=== PATIENT | female | born 1930 | race Caucasian/White ===

== ENCOUNTER 2016-07-29 09:03 | Outpatient (CLI) | payer MEDICARE, OTHER | END 2016-07-29 09:04 | disposition home or self-care (01) | DX: I48.91 Unspecified atrial fibrillation (principal); D51.9 Vitamin B12 deficiency anemia, unspecified; E55.9 Vitamin D deficiency, unspecified; I25.10 Atherosclerotic heart disease of native coronary artery without angina pectoris; G43.909 Migraine, unspecified, not intractable, without status migrainosus; E78.5 Hyperlipidemia, unspecified; I10 Essential (primary) hypertension ==

== ENCOUNTER 2016-08-12 15:20 | Outpatient (CLI) | payer MEDICARE, OTHER | END 2016-08-12 15:21 | disposition home or self-care (01) | DX: J01.90 Acute sinusitis, unspecified (principal) ==

== ENCOUNTER 2016-09-14 11:39 | Outpatient (CLI) | payer MEDICARE, OTHER | END 2016-09-14 11:40 | disposition home or self-care (01) | DX: Z12.31 Encounter for screening mammogram for malignant neoplasm of breast (principal); Z80.3 Family history of malignant neoplasm of breast ==

== ENCOUNTER 2016-09-29 12:01 | Outpatient (CLI) | payer MEDICARE, OTHER | END 2016-09-29 12:02 | disposition home or self-care (01) | DX: Z12.31 Encounter for screening mammogram for malignant neoplasm of breast (principal); Z80.3 Family history of malignant neoplasm of breast ==

== ENCOUNTER 2016-10-15 16:18 | Outpatient (CLI) | payer MEDICARE, OTHER | END 2016-10-15 23:59 | disposition critical access hospital (66) | DX: R55 Syncope and collapse (principal); R42 Dizziness and giddiness; R51 Headache; R53.1 Weakness | CPT/HCPCS: A0425; A0429 ==

== ENCOUNTER 2016-10-15 16:52 | Observation (INO) | payer MEDICARE, OTHER ==
[2016-10-15] MEDS ORDERED: ONDANSETRON 4 MG/2 ML VIAL IVP PRN (20:08)
[2016-10-15] MEDS ORDERED: SODIUM CHLORIDE FLUSH 0.9% 10 ML SYRINGE IVP PRN (20:08)
[2016-10-15] MEDS: SODIUM CHLORIDE FLUSH 0.9% 10 ML SYRINGE IVP SCH (21:39)
[2016-10-15] MEDS: SODIUM CHLORIDE 0.9% 1,000 ML IV SCH (21:39)
[2016-10-15] MEDS ORDERED: traMADol 50 MG TABLET PO PRN (21:54)
[2016-10-15] MEDS: hydrALAZINE INJ 20 MG/ML VIAL IVP PRN (22:15)
[2016-10-16] MEDS ORDERED: oxyCOD/ACETAMIN 5 MG/325 MG TABLET PO PRN (00:40)
[2016-10-16] MEDS ORDERED: SUMAtriptan 25 MG TABLET PO PRN (00:41)
[2016-10-16] MEDS: hydrALAZINE INJ 20 MG/ML VIAL IVP PRN (05:55)
[2016-10-16] MEDS: SODIUM CHLORIDE FLUSH 0.9% 10 ML SYRINGE IVP SCH (06:09)
[2016-10-16] MEDS: SODIUM CHLORIDE 0.9% 1,000 ML IV SCH (08:02)
[2016-10-16] MEDS ORDERED: POLYETHYLENE GLYCOL 3350 17 GM PACKET PO SCH (09:00)
[2016-10-16] MEDS ORDERED: METOPROLOL SUCCINATE 50 MG TABLET PO SCH (09:00)
[2016-10-16] MEDS ORDERED: amLODIPine 5 MG TABLET PO SCH (09:00)
[2016-10-16] MEDS ORDERED: ENOXAPARIN 40 MG/0.4 ML SYRINGE SUBQ SCH (09:00)
[2016-10-16] MEDS ORDERED: POTASSIUM CHLORIDE 20 MEQ TABLET PO SCH (10:00)
[2016-10-16] MEDS ORDERED: CARBOXYMETHYLCELLULOSE OPHTH DROPS ONE ×2 (10:22→12:27)
== END 2016-10-16 14:32 | disposition home or self-care (01) ==
DX: R55 Syncope and collapse (principal); E87.1 Hypo-osmolality and hyponatremia; E86.0 Dehydration; I10 Essential (primary) hypertension; J32.9 Chronic sinusitis, unspecified; I25.10 Atherosclerotic heart disease of native coronary artery without angina pectoris; Z95.1 Presence of aortocoronary bypass graft; E78.5 Hyperlipidemia, unspecified; Z79.82 Long term (current) use of aspirin
CPT/HCPCS: 36415; 70450; 71010; 80053; 81001; 83690; 84484; 85025; 85651; 93005; 93010; 93306; 93880; 96361; 96372; 96374; 96376; 99284; 99285; A9270; G0378; J1650

== ENCOUNTER 2017-01-26 10:13 | Outpatient (CLI) | payer MEDICARE, OTHER | END 2017-01-26 10:14 | LOC: LAB.N 10:13 | PROVIDERS: ATTEND Physician Assistant | DX: M70.62 Trochanteric bursitis, left hip (principal) | CPT/HCPCS: 36415; 85651 ==

== ENCOUNTER 2017-01-26 11:43 | Outpatient (CLI) | payer MEDICARE, OTHER ==
--- NOTE | 2017-01-26 14:18 | XRAY Report ---
BILATERAL HIPS AND PELVIS: 01/26/2017 CLINICAL INDICATION: Bursitis. FINDINGS: Frontal view of the hips and pelvis and bilateral frogleg lateral views of the hips are co mpared to previous films of 05/03/2013. There is mild bilateral hip osteoarthritis. There is no evidence of acute fracture or dislocation. Va scular calcifications are noted. IMPRESSION: MILD BILATERAL HIP OSTEOARTHRITIS. JOB #: [id number] EXT JOB #:[id number]
== END 2017-01-26 11:44 | disposition home or self-care (01) ==
LOC: DI.N 11:43
PROVIDERS: ATTEND Physician Assistant
DX: M16.0 Bilateral primary osteoarthritis of hip (principal)
CPT/HCPCS: 36415; 73521; 85651

== ENCOUNTER 2017-03-09 09:29 | Outpatient (CLI) | payer MEDICARE, OTHER ==
[2017-03-09 14:12] LABS: CHOL/HDL RATIO 2.6 (<4.4); CHOLESTEROL 149 mg/dL; HDL CHOLESTEROL 57 mg/dL; LDL/HDL RATIO 1.4 (<4.4); TRIGLYCERIDES 58 mg/dL; VLDL CHOLESTEROL 12 mg/dL
== END 2017-03-09 09:30 ==
LOC: LAB.N 09:29
PROVIDERS: ATTEND Internal Medicine Cardiovascular Disease
DX: Z95.1 Presence of aortocoronary bypass graft (principal); I10 Essential (primary) hypertension; I73.9 Peripheral vascular disease, unspecified; I48.0 Paroxysmal atrial fibrillation; E78.00 Pure hypercholesterolemia, unspecified; Z79.890 Hormone replacement therapy
CPT/HCPCS: 36415; 80061

== ENCOUNTER 2017-09-24 09:00 | Outpatient (CLI) | payer MEDICARE, OTHER ==
--- NOTE | 2017-09-24 14:17 | Ultrasound Report ---
EXAM: THYROID ULTRASOUND EXAM DATE: 09/24/2017 09:57 AM. CLINICAL HISTORY: LYMPHADENOPATHY. COMPARISON: None. TECHNIQUE: Real time sonographic imaging of the thyroid was performed by the hris manager. Multiple re presentative static images were saved for review. FINDINGS: THYROID GLAND: Right Lobe: 5.2 x 2.2 x 2.0 cm, volume 12 cc. Right Lobe Nodules: Too many to count subcentimeter cysts and nodules. Dominant cyst measures 1.3 cm and has slight mural nodularity. Left Lobe: 4.7 x 1.6 x 1.5 cm, volume 6 cc. Left Lobe Nodules: Too many to count subcentimeter cysts and nodules. Dominant mixed solid and cystic nodule measures 1.4 cm. Isthmus: 0.2 cm AP. Isthmic Nodules: None. LYMPH NODES: No adenopathy demonstrated in the central or lateral compartment. The right submandibular gland measures 3.1 x 2.5 x 1.0 cm and is palpable. The left submandibular gland measures 3.3 x 2.5 x 0.8 cm and is not palpable. IMPRESSION: Dominant left thyroid nodule as detailed above. Management recommendations are based on 2015 [place] [employer] Management Guidelines for A dult Patients with Thyroid Nodules and Differentiated Thyroid Cancer. [facility] Referring Provider Line: [phone] SITE ID: [id number]
== END 2017-09-24 09:01 | disposition home or self-care (01) ==
LOC: DI 09:00
PROVIDERS: ATTEND Nurse Practitioner Gerontology
DX: E04.2 Nontoxic multinodular goiter (principal)
CPT/HCPCS: 76536

== ENCOUNTER 2017-10-10 09:56 | Outpatient (CLI) | payer MEDICARE, OTHER | END 2017-10-10 09:57 | disposition home or self-care (01) | LOC: LAB.N 09:56 | PROVIDERS: ATTEND Nurse Practitioner Gerontology | DX: E04.2 Nontoxic multinodular goiter (principal) | CPT/HCPCS: 36415; 84443 ==

== ENCOUNTER 2017-12-19 10:30 | Outpatient (CLI) | payer MEDICARE, OTHER ==
[2017-12-19 19:26] LABS: BILIRUBIN,URINE NEGATIVE (NEGATIVE); GLUCOSE, URINE (UA) NEGATIVE (NEGATIVE); KETONES,URINE (UA) NEGATIVE (NEGATIVE); LEUKOCYTE ESTERASE, URINE LARGE (NEGATIVE); NITRITE,URINE NEGATIVE (NEGATIVE); OCCULT BLOOD,URINE SMALL (NEGATIVE); PROTEIN,URINE NEGATIVE (NEGATIVE); UROBILINOGEN,URINE 0.2 (NORMAL) E.U./dL (NORMAL)
[2017-12-19 19:29] LABS: CLARITY,URINE CLOUDY (CLEAR)
[2017-12-19 20:02] LABS: BACTERIA,URINE Many /HPF (None Seen); SQUAMOUS EPITHELIAL CELL,UR FEW Squamous (<= Few)
== END 2017-12-19 10:31 | disposition home or self-care (01) ==
LOC: LAB.R 10:30
PROVIDERS: ATTEND Physician Assistant Medical
DX: R30.0 Dysuria (principal)
CPT/HCPCS: 81001; 87086; 87181

== ENCOUNTER 2018-02-07 13:49 | Outpatient (CLI) | payer MEDICARE, OTHER | END 2018-02-07 13:50 | disposition critical access hospital (66) | LOC: EMS 13:49 | PROVIDERS: ATTEND Surgery | DX: M25.511 Pain in right shoulder (principal); W10.9XXA Fall (on) (from) unspecified stairs and steps, initial encounter; Y92.009 Unspecified place in unspecified non-institutional (private) residence as the place of occurrence of the external cause | CPT/HCPCS: A0425; A0429 ==

== ENCOUNTER 2018-02-07 14:25 | Emergency (ER) | payer MEDICARE, OTHER ==
[2018-02-07] MEDS ORDERED: ACETAMINOPHEN 325 MG TABLET PO STA (15:56)
--- NOTE | 2018-02-07 15:59 | ED Physician Documentation ---
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 denies: Neck pain, Back pain Neurologic: denies: Focal weakness, Numbness, Headache, Head injury Endocrine: denies: Easy bruising / bleeding PD PAST MEDICAL HISTORY - Past Medical History Cardiovascular: Hypertension, High cholesterol, Coronary artery disease Respiratory: None Endocrine/Autoimmune: None GI: None : None HEENT: Chronic hearing loss Psych: None Musculoskeletal: Osteoarthritis, Scoliosis Derm: None - Past Surgical History Past Surgical History: Yes Ortho: Spine surgery /VEGETABLE TESTER: Hysterectomy Cardiovascular: CABG - Present Medications Home Medications: Ambulatory Orders Medication Instructions Recorded Confirmed Aspirin [Aspir-Low] 81 mg ORAL DAILY 11/25/15 10/15/16 amLODIPine [Norvasc] 2.5 mg PO DAILY 10/15/16 10/16/16 Atenolol 25 mg PO QPM 10/16/16 10/16/16 Atenolol 50 mg PO DAILY 10/16/16 10/16/16 Atorvastatin Calcium 20 mg PO DAILY 10/16/16 10/16/16 Celecoxib [Celebrex] 200 mg PO DAILY PRN 10/16/16 10/16/16 Fluticasone [Flonase] 2 sprays KARLY DAILY PRN 10/16/16 10/16/16 Loratadine [Claritin] 10 mg PO DAILY 10/16/16 10/16/16 Tramadol HCl 50 mg PO DAILY PRN 10/16/16 10/16/16 oxyCODONE [Roxicodone] 5 mg PO Q6H PRN #10 tablet 02/07/18 - Allergies Allergies/Adverse Reactions: Allergies Allergy/AdvReac Type Severity Reaction Status Date / Time losartan Allergy Edema Verified 10/15/16 17:13 - Social History Does the pt smoke?: No Smoking Status: Never smoker Does the pt drink ETOH?: No Does the pt have substance abuse?: No - Immunizations Immunizations are current?: Yes PD ED PE NORMAL - Vitals Vital signs reviewed: Yes - HEENT HEENT: Atraumatic - Neck Neck: No bony TTP - Cardiac Cardiac: RRR - Respiratory Respiratory: No respiratory distress, Clear bilaterally - Abdomen Abdomen: Soft, Non tender - Derm Derm: Normal color - Extremities Extremities: Other (TTP distal clavicle and shoulder, limited ROM 2/2 pain, no gross deformity, MSV intact, knee mild TTP, no deofmrity, no laxity, able to range, MSV intact) - Neuro Neuro: Alert and oriented X 3, senior safety support manager 2-12 intact, No motor deficit, No sensory deficit, Normal speech Eye Opening: Spontaneous Motor: Obeys Commands Verbal: Oriented GCS Score: 15 Results - Vitals Vitals: Vital Signs - 24 hr 02/07/18 14:37 Temperature 36.7 C Heart Rate 54 L Respiratory 16 Rate Blood Pressure 178/56 H O2 Saturation 96 Oxygen O2 Source Room air - Rads (name of study) R shoulder Radiology: See rad report (comminuted minimally displaced / angulated fx distal clavicle not involving AC jt) knee Radiology: See rad report (possible patellar avilsion fx at site of quad tendon insertion) PD MEDICAL DECISION MAKING - Sepsis Event Vital Signs: Vital Signs - 24 hr 02/07/18 14:37 Temperature 36.7 C Heart Rate 54 L Respiratory 16 Rate Blood Pressure 178/56 H O2 Saturation 96 Oxygen O2 Source Room air Departure - Departure Disposition: 01 Home, Self Care Clinical Impression: Right clavicle fracture Qualifiers: Encounter type: initial encounter Clavicle location: lateral end Fracture type : closed Fracture alignment: displaced Qualified Code(s): S42.031A - Displaced fracture of lateral end of right clavicle, initial encounter for closed fracture Patella fracture Qualifiers: Encounter type: initial encounter Fracture type: closed Fracture morphology: unspecified fracture morphology Fracture alignment: nondisplaced Laterality: right Qualified Code(s): S82.001A - Unspecified fracture of right patella, initial encounter for closed fracture Condition: Good Instructions: ED Fx Clavicle, ED Fx Knee Follow-Up: [facility] [Provider Group] Prescriptions: oxyCODONE [Roxicodone] 5 mg PO Q6H PRN #10 tablet PRN Reason: Severe Pain Comments: !4 stairs was a huge tumble but thankfully you did not hurt your head or neck or break a hip You did break your clavicle and have an avulsion fracture of the kneecap. But you get to go home for today with a brace, a sling and some medication for the pain Please follow up with orthopedics call to schedule Wear the knee brace whenever ambulating - if you use your quadriceps to straighten your knee while weight bearing the injury could be worsened And even though you should wear the sling, several times a day do pendulum exercises as I showed you to keep the should joint from "freezing" Take tylenol and apply ice for mild pain. Only take the oxycodone for severe pain Return if worse
--- NOTE | 2018-02-07 16:18 | XRAY Report ---
Procedure Date: 02/07/2018 Accession Number: [id number] / [id number] Procedure: XR - Knee 4 View RT CPT Code: FULL RESULT: EXAM: RIGHT KNEE RADIOGRAPHY EXAM DATE: 02/07/2018 03:33 PM. CLINICAL HISTORY: Fell down 14 stairs. COMPARISON: None. TECHNIQUE: 4 views. FINDINGS: Bones: Possible minimally displaced fracture of a traction enthesophyte at the quadriceps insertion on the patella versus atypical appearance. No additional findings concerning for displaced fracture. No suspicious focal osseous lesion. Joints: No effusion. No subluxation/dislocation. No significant degenerative change on nonweightbearing exam. Soft Tissues: Mild vascular calcifications noted along the course of the popliteal artery. Surgical clips project along the medial lower leg within the soft tissues, possibly due to prior vein harvest. IMPRESSION: Possible minimally displaced fracture of a traction enthesophyte at the quadriceps insertion on the patella, though the absence of apparent soft tissue swelling suggests this is a chronic appearance. [facility]
--- NOTE | 2018-02-07 16:18 | XRAY Report ---
Procedure Date: 02/07/2018 Accession Number: [id number] / [id number] Procedure: XR - Shoulder 3 View RT CPT Code: FULL RESULT: EXAM: RIGHT SHOULDER RADIOGRAPHY EXAM DATE: 02/07/2018 03:33 PM. CLINICAL HISTORY: Fell down 14 stairs. COMPARISON: Chest radiograph 10/15/2016. Right shoulder radiograph 10/26/2007.. TECHNIQUE: 3 views. FINDINGS: Bones: Comminuted minimally displaced and minimally inferiorly angulated fracture of the distal third of the clavicle without definite extension to the acromioclavicular joint. Joints: The glenohumeral joint is unremarkable. Prominent inferior facing osteophyte from the acromion likely impinging upon the rotator cuff, similar to remote prior exam. Soft tissues: Soft tissue swelling/hematoma present about the fracture site. Visualized hemithorax is unremarkable with evidence of prior sternotomy. IMPRESSION: Minimally displaced and minimal apex inferior angulation of a comminuted distal clavicular fracture without extension/disruption of the acromioclavicular joint. Fracture is just beyond the site of the coracoclavicular ligament attachment. [facility]
[2018-02-07 17:53] VITALS: BP 164/74
== END 2018-02-07 17:52 | disposition home or self-care (01) ==
LOC: ED 14:25
DX: S42.031A Displaced fracture of lateral end of right clavicle, initial encounter for closed fracture (principal); S82.001A Unspecified fracture of right patella, initial encounter for closed fracture; I10 Essential (primary) hypertension; Z79.82 Long term (current) use of aspirin; W10.9XXA Fall (on) (from) unspecified stairs and steps, initial encounter
CPT/HCPCS: 73030; 73564; 99283; 99284; A9270

== ENCOUNTER 2018-08-31 08:00 | Outpatient (CLI) | payer MEDICARE, OTHER ==
[2018-08-31 19:33] LABS: THYROID STIMULATING HORMONE 3.35 uIU/mL (0.34-5.60)
== END 2018-08-31 23:59 | disposition home or self-care (01) ==
LOC: LAB.N 08:00
PROVIDERS: ATTEND Nurse Practitioner Gerontology
DX: R53.83 Other fatigue (principal); E04.2 Nontoxic multinodular goiter; E53.8 Deficiency of other specified B group vitamins
CPT/HCPCS: 36415; 82607; 84443

== ENCOUNTER 2018-09-21 12:50 | Outpatient (CLI) | payer MEDICARE, OTHER ==
--- NOTE | 2018-09-21 16:11 | Ultrasound Report ---
Reason: ABDOMINAL AORTIC ANUERYSM Procedure Date: 09/21/2018 Accession Number: [id number] / [id number] Procedure: US - Retroperitoneal Limited CPT Code: FULL RESULT: EXAM: AORTIC DOPPLER ULTRASOUND EXAM DATE: 09/21/2018 02:27 PM. CLINICAL HISTORY: Abdominal aortic aneurysm followup. COMPARISON: None. TECHNIQUE: Real-time sonographic imaging of retroperitoneal vascular structures, including color-flow, was performed by the student specialist. Multiple labor union business representative static images were saved for review. FINDINGS: Aorta: The abdominal aorta was suboptimally visualized with ultrasound due to overlying bowel gas. 3.7 cm fusiform aneurysm of the infrarenal aorta is confirmed sonographically corresponding to finding described on outside lumbar spine MRI. Normal caliber iliac arteries noted. Aorta: Proximal: Sagittal AP 2.25 cm. Mid: Transverse 1.96 x 1.70 cm. Distal: Transverse 3.67 x 3.63 cm. Iliacs: Right Iliac: Transverse 1.0 x 0.84 cm. Left Iliac: Transverse 1.1 x 0.94 cm. Iliac Vessels: The visualized proximal common iliac arteries are normal in caliber. Other: 4 cm unilocular, thin-walled, anechoic, simple appearing cyst noted in the left lower quadrant adjacent to the urinary bladder incompletely characterized on this exam. IMPRESSION: 1. 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 2. 4 cm unilocular simple appearing cyst in the left lower quadrant adjacent to urinary bladder presumably an ovarian cyst. Recommend dedicated pelvic ultrasound for further characterization. [facility]
== END 2018-09-21 12:51 | disposition home or self-care (01) ==
LOC: DI 12:50
PROVIDERS: ATTEND Nurse Practitioner Gerontology
DX: I71.4 Abdominal aortic aneurysm, without rupture (principal)
CPT/HCPCS: 76775

== ENCOUNTER 2018-10-03 10:14 | Outpatient (CLI) | payer MEDICARE, OTHER ==
--- NOTE | 2018-10-03 16:36 | Mammography Report ---
Reason: SCREENING MAMMO Procedure Date: 10/03/2018 Accession Number: [id number] / [id number] Procedure: MGN - Screening Mammo Dig Bilat CPT Code: FULL RESULT: EXAM: Screening Mammo Dig Bilat DATE: 10/03/2018 10:43 AM CLINICAL HISTORY: Routine screening. No reported personal or family history of breast cancer. History of benign excisional biopsy left breast in 1992. TECHNIQUE: (B) - Bilateral Bilateral CC and MLO views were obtained. COMPARISON: 09/14/2016 through 02/07/2014 PARENCHYMAL PATTERN: (D) - The breasts demonstrate heterogeneously dense fibroglandular parenchyma bilaterally. FINDINGS: Left breast: There are stable excisional biopsy changes in the inferior breast. Exam is mildly technically limited due to to patient mobility constraints secondary to scoliosis; the best possible images were obtained. There are no suspicious masses, calcifications or areas of nonoperative distortion. Right breast: There are no suspicious masses, calcifications, or areas of distortion. IMPRESSION: Benign findings. BI-RADS category 2 RECOMMENDATION: (ANNUAL) - Recommend routine annual screening mammography. BI-RADS CATEGORY: (2) - Benign Findings STANDARD QUALIFYING STATEMENTS: 1. This examination was reviewed with the aid of Computer-Aided Detection (CAD). 2. A negative or benign imaging report should not preclude biopsy if clinically suspicious findings are present. 3. Dense breasts may obscure an underlying neoplasm. 4. This examination was reviewed without the aid of 3D breast imaging (tomosynthesis).
== END 2018-10-03 10:15 | disposition home or self-care (01) ==
LOC: DI.N 10:14
DX: Z12.31 Encounter for screening mammogram for malignant neoplasm of breast (principal)
CPT/HCPCS: 77067

== ENCOUNTER 2018-11-15 11:04 | Outpatient (CLI) | payer MEDICARE, OTHER ==
--- NOTE | 2018-11-16 10:21 | XRAY Report ---
Reason: acute lower respiratory infection Procedure Date: 11/15/2018 Accession Number: [id number] / [id number] Procedure: XRN - Chest 2 View X-Ray CPT Code: 90919 FULL RESULT: EXAM: CHEST RADIOGRAPHY EXAM DATE: 11/15/2018 11:28 AM. CLINICAL HISTORY: Acute lower respiratory infection. COMPARISON: CHEST 1 VIEW 10/15/2016 8:53 PM. TECHNIQUE: 2 views. FINDINGS: Lungs/Pleura: Lungs are hypoinflated. No focal airspace opacities to indicate pneumonia. No significant effusion and no extraventilatory air. Mediastinum: Heart size is borderline enlarged. There is no edema. Mediastinal and hilar contours are within expected limits. Other: Posterior left hemidiaphragmatic eventration versus Bochdalek hernia containing stomach is noted behind the heart. IMPRESSION: No infiltrates or edema. [facility]
== END 2018-11-15 11:05 | disposition home or self-care (01) ==
LOC: DI.N 11:04
PROVIDERS: ATTEND Nurse Practitioner Gerontology
DX: J22 Unspecified acute lower respiratory infection (principal)
CPT/HCPCS: 71046

== ENCOUNTER 2019-07-13 11:19 | Outpatient (CLI) | payer MEDICARE, OTHER ==
[2019-07-13 19:35] LABS: ALBUMIN 4.2 g/dL (3.2-5.5); ALBUMIN/GLOBULIN RATIO 1.4 (1.0-2.2); ALKALINE PHOSPHATASE 58 IU/L (42-121); ALT ALANINE AMINOTRANSFERASE 21 IU/L (10-60); AST ASPARTATE AMINOTRANSFERASE 23 IU/L (10-42); BILIRUBIN,TOTAL 0.7 mg/dL (0.2-1.0); BUN - BLOOD UREA NITROGEN 11 mg/dL (6-20); CARBON DIOXIDE - CO2 29 mmol/L (21-32); CHLORIDE 96 mmol/L (101-111); CHOL/HDL RATIO 2.8 (<4.4); CHOLESTEROL 179 mg/dL; CREATININE 0.6 mg/dL (0.4-1.0); GFR - MDRD 95 (>89); GLUCOSE 96 mg/dL (70-100); HDL CHOLESTEROL 63 mg/dL; LDL CHOLESTEROL,CALCULATED 97 mg/dL; LDL/HDL RATIO 1.5 (<4.4); SODIUM 132 mmol/L (135-145); TOTAL PROTEIN 7.3 g/dL (6.7-8.2); VLDL CHOLESTEROL 19 mg/dL
== END 2019-07-13 23:59 | disposition home or self-care (01) ==
LOC: LAB.N 11:19
PROVIDERS: ATTEND Internal Medicine Cardiovascular Disease
DX: E78.5 Hyperlipidemia, unspecified (principal)
CPT/HCPCS: 36415; 80053; 80061; 83721

== ENCOUNTER 2019-08-18 21:22 | Outpatient (CLI) | payer MEDICARE, OTHER | END 2019-08-18 21:23 | disposition critical access hospital (66) | LOC: EMS 21:22 | PROVIDERS: ATTEND Surgery | DX: M54.9 Dorsalgia, unspecified (principal); W18.39XA Other fall on same level, initial encounter; Y92.008 Other place in unspecified non-institutional (private) residence as the place of occurrence of the external cause | CPT/HCPCS: A0425; A0429 ==

== ENCOUNTER 2019-08-18 21:49 | Emergency (ER) | payer MEDICARE, OTHER ==
--- NOTE | 2019-08-18 22:05 | ED Physician Documentation ---
History of Present Illness - Stated complaint Stated Complaint: GLF - Chief complaint Chief Complaint: Back Pain - History obtained from History obtained from: Patient (the patient is a n 88 y/o f who was brought in by EMS after she slumped to the floor while she was at her house.The patient reports that she was putting on her pajamas to go to bed and then she kind of slumped to the floor she is complaining of diffuse back pain, she is unsure if she hit her head she arrives in a c collar, she is on plavix, she is unsure if she had a loss of consciousness. She denies any bleeding. she reports severe back pain and states she cannot walk and that she has had recurrent falls over the last several weeks. she has a hx of triple bypass surgery for cad.the patient denies chest pain or shortness of breath. patient reports she cannot sit up, cannot walk with or without assistance.) Review of Systems Constitutional: reports: Reviewed and negative Eyes: reports: Reviewed and negative Ears: reports: Reviewed and negative Nose: reports: Reviewed and negative Throat: reports: Reviewed and negative Cardiac: reports: Reviewed and negative Respiratory: reports: Reviewed and negative GI: reports: Reviewed and negative : reports: Reviewed and negative Skin: reports: Reviewed and negative Musculoskeletal: reports: Back pain Neurologic: reports: Reviewed and negative Psychiatric: reports: Reviewed and negative Endocrine: reports: Reviewed and negative Immunocompromised: reports: Reviewed and negative PD PAST MEDICAL HISTORY - Past Medical History Cardiovascular: Hypertension, High cholesterol, Coronary artery disease Respiratory: None Endocrine/Autoimmune: None GI: None : None HEENT: Chronic hearing loss Psych: None Musculoskeletal: Osteoarthritis, Scoliosis Derm: None - Past Surgical History Past Surgical History: Yes Ortho: Spine surgery /TECHNICAL TRANSLATOR: Hysterectomy Cardiovascular: CABG - Present Medications Home Medications: Ambulatory Orders Medication Instructions Recorded Confirmed Aspirin [Aspir-Low] 81 mg ORAL DAILY 11/25/15 10/15/16 amLODIPine [Norvasc] 2.5 mg PO DAILY 10/15/16 10/16/16 Atenolol 50 mg PO DAILY 10/16/16 10/16/16 Atorvastatin Calcium 20 mg PO DAILY 10/16/16 10/16/16 Celecoxib [Celebrex] 200 mg PO DAILY PRN 10/16/16 10/16/16 Fluticasone [Flonase] 2 sprays KARLY DAILY PRN 10/16/16 10/16/16 Loratadine [Claritin] 10 mg PO DAILY 10/16/16 10/16/16 Tramadol HCl 50 mg PO DAILY PRN 10/16/16 10/16/16 atenoloL [Atenolol] 25 mg PO QPM 10/16/16 10/16/16 oxyCODONE [Roxicodone] 5 mg PO Q6H PRN #10 tablet 02/07/18 - Allergies Allergies/Adverse Reactions: Allergies Allergy/AdvReac Type Severity Reaction Status Date / Time losartan Allergy Edema Verified 10/15/16 17:13 - Social History Does the pt smoke?: No Smoking Status: Never smoker Does the pt drink ETOH?: No Does the pt have substance abuse?: No - Immunizations Immunizations are current?: Yes PD ED PE NORMAL - Vitals Vital signs reviewed: Yes - General General: Other (frail and weak appearing, crying in pain, no obvious signs of trauma) - HEENT HEENT: Atraumatic, PERRL, Pharynx benign, Dentition benign - Neck Neck: Supple, no meningeal sign, No bony TTP, No JVD, Other (c collar in place) - Cardiac Cardiac: RRR, No murmur, Strong equal pulses - Respiratory Respiratory: No respiratory distress, Clear bilaterally - Abdomen Abdomen: Normal bowel sounds, Soft, Non tender, Non distended, No organomegaly - Back Back: Other (The back is diffusely tender throughout the thoracic and lumbar spine to include bilateral paraspinal muscles the patient is complaining of pain when the midline is pushed however there is no step-offs or deformities of the thoracic or lumbar spine.There is no midline tenderness to palpation of the cervical spine no step-offs or deformities of the cervical spine there is a cervical collar in place.) - Derm Derm: Warm and dry - Extremities Extremities: No deformity - Neuro Neuro: burr machine operator 2-12 intact, No motor deficit, No sensory deficit, Normal speech - Psych Psych: Normal mood, Normal affect Results - Vitals Vitals: Vital Signs - 24 hr 08/18/19 08/19/19 21:57 03:49 Temperature 36.3 C L Heart Rate 72 74 Respiratory 18 14 Rate Blood Pressure 183/75 H 141/62 H O2 Saturation 95 96 Oxygen O2 Source Room air - EKG (time done) 22:46 Rhythm: NSR [place]: LAD Intervals: Normal [place] Ischemia: Non specific changes Computer interpretation: Agree with computer - Labs Labs: Laboratory Tests 08/18/19 08/18/19 08/18/19 22:09 22:09 22:09 WBC 8.0 RBC 4.67 Hgb 13.8 Hct 42.2 MCV 90.4 MCH 29.6 MCHC 32.7 RDW 12.8 Plt Count 312 MPV 9.9 Neut # (Auto) 5.2 Lymph # (Auto) 1.8 [place] # (Auto) 0.7 Eos # (Auto) 0.1 Baso # (Auto) 0.0 Absolute Nucleated RBC 0.00 Nucleated RBC % 0.0 PT 12.1 INR 1.1 APTT 31.1 Sodium 133 L Potassium 3.6 Chloride 96 L Carbon Dioxide 26 Anion Gap 11.0 BUN 12 Creatinine 0.7 Estimated GFR (MDRD) 79 L Glucose 157 H Calcium 9.1 Troponin I High Sens Ethyl Alcohol < 5.0 08/18/19 08/19/19 22:09 01:00 WBC RBC Hgb Hct MCV MCH MCHC RDW Plt Count MPV Neut # (Auto) Lymph # (Auto) [place] # (Auto) Eos # (Auto) Baso # (Auto) Absolute Nucleated RBC Nucleated RBC % PT INR APTT Sodium Potassium Chloride Carbon Dioxide Anion Gap BUN Creatinine Estimated GFR (MDRD) Glucose Calcium Troponin I High Sens 17.7 H* 21.3 H* Ethyl Alcohol PD MEDICAL DECISION MAKING - ED course Complexity details: re-evaluated patient (after imaging reviewed patient reexamined, her c collar was removed using c spine nexus criteria. patient continues to have pain, she is unable to ambulate with or without assistance, she is unable to sit up on her own, she is unble to sit up in a wheelchair.), d/w patient, d/w family (had a lengthy discussion with patient and regarding plan. the patient and ultimately decided to go home, the patient was taken home via ambulance. the patient was evaluated by the hospitalist dr. gloria tejada and he recommended the patient not be admitted to the hospital and that she be sent home.), other - Consults Consults: Consulted (name) (dr. gloria tejada. recommends dc home and follow up as outpatient.), Discussed case with (dr gloria tejada. recommends dc home and follo w up with outpatient treatment.), Request legal nurse consultant evaluate patient, Request legal nurse consultant admit patient Departure - Departure Disposition: 01 Home, Self Care Clinical Impression: Weakness, Recurrent falls, Troponin I above reference range Back pain Qualifiers: Back pain location: back pain in unspecified location Chronicity: acute Back pain laterality: unspecified Qualified Code(s): M54.9 - Dorsalgia, unspecified Condition: Fair Instructions: Troponin, ED Low Back Pain Injury Follow-Up: Nicolle Byrne ARNP [Primary Care Provider] - Tomorrow Discharge Date/Time: 08/19/19 03:50
[2019-08-18 22:37] LABS: BASOPHILS % (AUTO) 0.5 %; EOSINOPHILS # (AUTO) 0.1 10^3/uL (0.0-0.7); EOSINOPHILS % (AUTO) 1.6 %; HGB - HEMOGLOBIN 13.8 g/dL (12.0-16.0); LYMPHOCYTES # (AUTO) 1.8 10^3/uL (1.5-3.5); LYMPHOCYTES % (AUTO) 22.1 %; MEAN CORPUSCULAR HEMOGLOBIN 29.6 pg (27.0-31.0); MEAN CORPUSCULAR HGB CONC 32.7 g/dL (32.0-36.0); MEAN CORPUSCULAR VOLUME 90.4 fL (81.0-99.0); MEAN PLATELET VOLUME 9.9 fL (7.9-10.8); MONOCYTES # (AUTO) 0.7 10^3/uL (0.0-1.0); MONOCYTES % (AUTO) 8.9 %; NEUTROPHILS # (AUTO) 5.2 10^3/uL (1.5-6.6); NEUTROPHILS % (AUTO) 65.1 %; PLT - PLATELET COUNT 312 10^3/uL (130-450); RED BLOOD COUNT 4.67 10^6/uL (4.20-5.40); RED CELL DISTRIBUTION WIDTH 12.8 % (12.0-15.0)
[2019-08-18 22:39] LABS: INR 1.1 (0.8-1.2); PT - PROTHROMBIN TIME 12.1 secs (9.9-12.6)
[2019-08-18 22:46] LABS: PARTIAL THROMBOPLASTIN TIME 31.1 secs (24.9-33.3)
[2019-08-18 22:47] LABS: BUN - BLOOD UREA NITROGEN 12 mg/dL (6-20); CARBON DIOXIDE - CO2 26 mmol/L (21-32); CHLORIDE 96 mmol/L (101-111); CREATININE 0.7 mg/dL (0.4-1.0); GFR - MDRD 79 (>89); GLUCOSE 157 mg/dL (70-100); SODIUM 133 mmol/L (135-145)
[2019-08-18 23:00] LABS: CALCIUM 9.1 mg/dL (8.5-10.3)
--- NOTE | 2019-08-18 23:44 | CT Report ---
Reason: trauma Procedure Date: 08/18/2019 Accession Number: [id number] / [id number] Procedure: CT - HEAD WO CPT Code: Final Report FULL RESULT: EXAM: CT HEAD EXAM DATE: 08/18/2019 11:33 PM. CLINICAL HISTORY: Trauma. COMPARISON: HEAD W/O 10/15/2016 5:43 PM. TECHNIQUE: Multiaxial CT images were obtained from the foramen magnum to the vertex. Reformats: Sagittal and coronal. IV contrast: None. In accordance with CT protocol optimization, one or more of the following dose reduction techniques were utilized for this exam: automated exposure control, adjustment of mA and/or KV based on patient size, or use of iterative reconstructive technique. FINDINGS: PARENCHYMA: No acute hemorrhage, transcortical infarction or mass. Old left basal ganglia lacunar infarct. Periventricular and white matter hypointensities are nonspecific but most consistent with chronic microvascular ischemic changes. EXTRA-AXIAL SPACES: No extra-axial fluid collections. No midline shift. VENTRICLES/SULCI: Enlargement of the lateral and third ventricles with prominence of the cortical sulci consistent with moderate cerebral volume loss. VASCULAR STRUCTURES: Arterial calcifications consistent with atherosclerosis. SINUSES: The visible paranasal sinuses and mastoid air cells are unremarkable. ORBITS: Status post bilateral cataract surgery. BONES: No displaced acute calvarial fracture. OTHER: None. IMPRESSION: 1. No acute intracranial findings. 2. Cerebral atrophy and chronic microvascular ischemic changes. [facility]
--- NOTE | 2019-08-18 23:56 | CT Report ---
Reason: trauma Procedure Date: 08/18/2019 Accession Number: [id number] / [id number] Procedure: CT - CERVICAL SPINE WO CPT Code: Final Report FULL RESULT: EXAM: CT CERVICAL SPINE WITHOUT CONTRAST DATE: 08/18/2019 11:33 PM. HISTORY: Trauma. COMPARISONS: Unavailable. TECHNIQUE: Thin-section axial images were acquired of the cervical spine without contrast. Post-processing: Coronal and sagittal reformats. Other: None. In accordance with CT protocol optimization, one or more of the following dose reduction techniques were utilized for this exam: automated exposure control, adjustment of mA and/or KV based on patient size, or use of iterative reconstructive technique. FINDINGS: ALIGNMENT: Normal. BONES: The bones are osteopenic. No displaced acute fracture identified. The vertebral bodies are normal in height. No suspicious osseous lesions. PARASPINAL SOFT TISSUES: No prevertebral soft tissue swelling. Right carotid artery calcifications. Multinodular thyroid. UPPER CHEST: Severe atherosclerosis of the imaged aorta. DISKS/JOINTS: Multilevel disk height loss and uncovertebral joint arthropathy. There is also multilevel facet arthropathy which is most pronounced on the left. There is calcification of the posterior longitudinal ligament at C5-C6 and C6-C7 causing severe central canal stenosis at C5-C6 and mild central canal stenosis at C6-C7 IMPRESSION: 1. No acute fracture or traumatic malalignment. 2. 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 [facility]
--- NOTE | 2019-08-19 00:34 | XRAY Report ---
Reason: fall Procedure Date: 08/18/2019 Accession Number: [id number] / [id number] Procedure: XR - Chest 1 View X-Ray CPT Code: 47336 Final Report FULL RESULT: EXAM: CHEST RADIOGRAPHY EXAM DATE: 08/18/2019 10:48 PM CLINICAL HISTORY: Fall. COMPARISON: CHEST 2 VIEW 11/15/2018 11:33 AM. TECHNIQUE: 1 view. FINDINGS: Lungs/Pleura: Mild interstitial and airspace opacities throughout both lungs. No pleural effusion. No pneumothorax. Mediastinum: Status post median sternotomy with postsurgical changes which likely reflect cabbage. Other: Chronic right clavicle fracture. IMPRESSION: Interstitial and airspace opacities throughout both lungs, which may reflect mild pulmonary edema. Moderate hiatal hernia. [facility]
--- NOTE | 2019-08-19 00:42 | CT Report ---
Reason: fall back pain Procedure Date: 08/18/2019 Accession Number: [id number] / [id number] Procedure: CT - THORACIC SPINE WO CPT Code: Final Report FULL RESULT: EXAM: CT THORACIC SPINE WITHOUT CONTRAST EXAM DATE: 08/18/2019 11:31 PM. CLINICAL HISTORY: Fall, back pain. COMPARISONS: 05/03/2013 4:39 PM. TECHNIQUE: Thin-section axial images were acquired of the thoracic spine from C7 to L1 without contrast. Post-processing: Coronal and sagittal reformats. Other: None. In accordance with CT protocol optimization, one or more of the following dose reduction techniques were utilized for this exam: automated exposure control, adjustment of mA and/or KV based on patient size, or use of iterative reconstructive technique. FINDINGS: Alignment: Moderate S-shaped scoliosis is present with rightward convexity at approximately T5-T6 and leftward convexity at T10-T11. On sagittal images, no spondylolisthesis is appreciated. Bones: The bones are demineralized. However, no acute thoracic spine fracture is seen. There are 11 ribs on the right. 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 There is fusion of the vertebral bodies from T6-T8 with partial fusion of the disk spaces at T9-T10 and T10-T11 which is likely due to prior instrumented fusion. The posterior elements appear fused throughout the lower thoracic spine into the lumbar region, likely related to previous instrumented fusion. An anterior wedge compression fracture of T5 is noted which has a chronic appearance. Disk Levels/Facets: On axial images, no significant disk bulge or herniation is seen at any thoracic level. There is no bony spinal canal stenosis. Evaluation for foraminal narrowing is limited due to the patient's degree of scoliosis. However, there is no evidence of severe foraminal narrowing at any thoracic level. Musculature: There is moderate diffuse fatty atrophy of the posterior paraspinal muscles. Other: A small hiatal hernia is noted. Mild emphysematous changes are noted in the partially visualized lungs. IMPRESSION: 1. No acute thoracic spine fracture. 2. Moderate S-shaped scoliosis is present without evidence of high-grade bony spinal canal or foraminal stenosis. 3. 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 [facility]
--- NOTE | 2019-08-19 00:48 | CT Report ---
Reason: lumbar back pain fall Procedure Date: 08/18/2019 Accession Number: [id number] / [id number] Procedure: CT - LUMBAR SPINE WO CPT Code: Final Report FULL RESULT: EXAM: CT LUMBAR SPINE WITHOUT CONTRAST EXAM DATE: 08/18/2019 11:34 PM. CLINICAL HISTORY: Lumbar back pain, fall. COMPARISONS: Lumbar spine radiographs from 05/03/2013. TECHNIQUE: Thin-section axial images were acquired of the lumbar spine from L1 to S1 without contrast. Post-processing: Coronal and sagittal reformats. Other: None. In accordance with CT protocol optimization, one or more of the following dose reduction techniques were utilized for this exam: automated exposure control, adjustment of mA and/or KV based on patient size, or use of iterative reconstructive technique. FINDINGS: Alignment: Dextroscoliosis is present with convexity at L3-L4. Retrolisthesis at L4-L5 measures 7 mm. Bones: For the purposes of this dictation, note that the last rib-bearing vertebral body is labeled T11. A T12 vertebral body is absent and the first ija-wry-wpcgnes lumbar vertebral body will be labeled L1. The bones are demineralized. However, no acute lumbar spine fracture is seen. The posterior elements are fused from the thoracic spine to the L1-L2 level, likely related to previous instrumented fusion. Disk Levels/Facets: L1-L2: The posterior elements are fused. The spinal canal and foramina are patent. L2-L3: A posterior disk osteophyte complex with facet arthropathy result in mild spinal canal stenosis. There is moderate left and mild right foraminal narrowing. L3-L4: A posterior disk osteophyte complex and facet arthropathy result in mild spinal canal stenosis. There is moderate left and mild right foraminal narrowing. L4-L5: A posterior disk osteophyte complex and facet arthropathy result in mild spinal canal stenosis. There is severe right and moderate left foraminal narrowing. L5-S1: A posterior disk osteophyte complex with facet arthropathy and ligamentum flavum infolding result in mild spinal canal stenosis. There is severe bilateral foraminal narrowing, worse on the left. Musculature: There is moderate to severe diffuse fatty atrophy of the posterior paraspinal muscles. Other: Diverticulosis is present without evidence of diverticulitis. IMPRESSION: 1. Of note for this report, the T12 vertebral body is considered absent with the first lumbar-type [id number]-ett-[id number] vertebrae listed as L1. 2. No acute lumbar spine fracture. 3. Moderate to severe multilevel degenerative changes are present but there is no high-grade spinal canal stenosis. 4. Severe right foraminal narrowing is present at L4-L5 and bilaterally at L5-S1. [facility]
--- NOTE | 2019-08-19 01:27 | XRAY Report ---
Reason: fall Procedure Date: 08/18/2019 Accession Number: [id number] / [id number] Procedure: XR - Pelvis 1 View CPT Code: Final Report FULL RESULT: EXAM: PELVIS RADIOGRAPHY EXAM DATE: 08/18/2019 10:47 PM. CLINICAL HISTORY: Fall. COMPARISON: HIP BILAT 01/26/2017 11:59 AM. TECHNIQUE: 1 view. FINDINGS: Bones: Normal. No fracture or bone lesion. Joints: The visualized hip, pubis symphysis, and sacroiliac joints are preserved. No subluxation. Soft Tissues: Normal. No soft tissue swelling. IMPRESSION: Normal pelvis radiography. [facility]
[2019-08-19] MEDS ORDERED: MORPHINE 2 MG/ML CARPUJECT IVP STA (01:41)
[2019-08-19] MEDS ORDERED: ONDANSETRON 4 MG/2 ML VIAL IVP STA (01:41)
[2019-08-19] MEDS ORDERED: HYDROcod/ACET 5/325 Prepack 4 PO STA (02:32)
[2019-08-19 03:50] VITALS: BP 141/62
--- NOTE | 2019-08-19 04:03 | PROVIDER PROGRESS NOTE ---
Dredge Worker Note - Dredge Worker Note Dredge Worker Note: I was presented an 88 y/o female for possible admission by the ED physician. The patient is an 88 y/o female who presented to the ED after a mechanical fall at home last night. She was changing for the night when her legs got tangled in the pants causing her to fall. She fell into the wall with her left shoulder, then slid down unto her bottom. She did not hit her head or black out. She complained of pain in her back and being unable to ambulate. Taking her upper e xtremities through ranges of motion at the shoulders seems to worsen her back pain. She denied chest pain, dyspnea, dizziness, abdominal pain, fever or chills. Work up included CT scan of the head, neck, thoracic, lumbar spine and pelvis. These were all negative for fractures. CBC and BMP were also unremarkable. EKG was unremarkable. Initial troponin was 17 then 23. Patient was given a dose of morphine 2mg IV in the ED After assessment, I explained to the patient and her in the presence of the ED physician that at the moment she did not meet admission criteria. I recommended that the patient could either stay in the ED for a few hours while her pain was managed. I suggest more pain med to include toradol. She could be seen by social work for placement from the ED The other option was for her to go home with family and a prescription for oral pain medication. Her was uncomfortable taking her home. However the patient decided to go home.
== END 2019-08-19 03:50 | disposition home or self-care (01) ==
LOC: EDUNIT# → ED 21:49
DX: M54.9 Dorsalgia, unspecified (principal); R53.1 Weakness; R79.89 Other specified abnormal findings of blood chemistry; I10 Essential (primary) hypertension; Z91.81 History of falling; Z79.02 Long term (current) use of antithrombotics/antiplatelets
CPT/HCPCS: 36415; 70450; 71045; 72125; 72128; 72131; 72170; 80048; 80320; 84484; 85025; 85610; 85730; 93005; 96374; 96375; 99285

== ENCOUNTER 2019-08-19 03:50 | Outpatient (CLI) | payer MEDICARE, OTHER | END 2019-08-19 03:51 | disposition home or self-care (01) | LOC: EMS 03:50 | PROVIDERS: ATTEND Surgery | DX: M54.9 Dorsalgia, unspecified (principal); Z74.01 Bed confinement status | CPT/HCPCS: A0425; A0428 ==

== ENCOUNTER 2019-08-20 16:30 | Outpatient (CLI) | payer MEDICARE, OTHER | END 2019-08-20 16:31 | disposition short-term general hospital (02) | LOC: EMS 16:30 | PROVIDERS: ATTEND Surgery | DX: M54.9 Dorsalgia, unspecified (principal); R10.9 Unspecified abdominal pain | CPT/HCPCS: A0425; A0429 ==